=== PATIENT | male | born 1960 | race Caucasian/White ===

== ENCOUNTER 2016-08-18 16:21 | Emergency (ER) | payer SELFPAY ==
[2016-08-18 16:26] VITALS: BP 148/98
== END 2016-08-18 17:39 | disposition home or self-care (01) ==
LOC: ED 16:21
DX: S91.332A Puncture wound without foreign body, left foot, initial encounter (principal); W22.8XXA Striking against or struck by other objects, initial encounter; Y93.89 Activity, other specified; Y92.89 Other specified places as the place of occurrence of the external cause; Y99.8 Other external cause status
CPT/HCPCS: 90715; Q0092

== ENCOUNTER 2020-01-29 17:22 | Emergency (ER) | payer SELFPAY ==
[~2020-01-29] VITALS: Ht 167.6 cm; Wt 77.1 kg
[2020-01-29 17:28] VITALS: BP 169/97; Ht 167.6 cm; Wt 77.1 kg
== END 2020-01-29 18:43 | disposition left against medical advice (07) ==
LOC: ED 17:22
DX: Z53.21 Procedure and treatment not carried out due to patient leaving prior to being seen by health care provider (principal)